=== PATIENT | male | born 1965 | race Caucasian/White ===

== ENCOUNTER → 2017-03-04 | Day surgery (SDC) | payer OTHER ==
[~2017-03-04] MED LIST: ALPRAZOLAM PO; FLEXERIL10 M1 PO; GENESUPP-5001 CAP PO; GRALISE600 MG PO; KETOPROFEN PO; LEXAPRO PO; LODINE500 M1 PO; LORTAB 10-3251 EACH PO; LORTAB 10/500 T1 TAB PO; LORTAB 7.5-5001 TAB PO; MAGNESIUM500 MG PO; NEURONTIN PO; ROBAXIN PO; ROBAXIN500 MG PO; SKELAXIN PO; VITAMIN D1000 UNI2 PO; VOLTAREN50 MG PO
--- NOTE | ~2017-03-04 | OR ---
Unit #: [id number] #: [id number] Patient: АНДРЕЙ LANTIGUA JR [id number] [address] [id number] [id number] MR#: [id number] NAME: АНДРЕЙ LANTIGUA JR ROOM: Date of Procedure: 03/04/2017 Admission Date: 03/04/2017 Surgeon: Mauricio Nicolas M.D. : 1965 Attending Physician: Mauricio Nicolas M.D. OPERATIVE REPORT PREOPERATIVE DIAGNOSES Neck pain, cervical radiculopathy, degenerative cervical disk disease. POSTOPERATIVE DIAGNOSIS Neck pain, cervical radiculopathy, degenerative cervical disk disease. PROCEDURE PERFORMED Cervical epidural steroid injection with intravenous sedation and fluoroscopic guidance for needle localization. INDICATIONS FOR PROCEDURE The patient is a 51-year-old male with return of neck and right upper extremity pain due to multilevel multifactorial degenerative cervical disk and spine disease. He is not a good surgical candidate based on pathology. He has done very well with epidural steroids. Last were done in 02/2016. He had a return of significant pain after about 3 to 4 months. Plan is to repeat a single injection at this point. He may do better with single injection on an as needed basis. DESCRIPTION OF PROCEDURE The patient was placed in a seated position. Standard monitors were applied. 2 mg of Versed were given for sedation and anxiolysis, which were adequate. Vital signs remained stable. Sterile prep and drape then of the cervical area was performed. The skin then at the C5 level was localized with 1% lidocaine. An 18-gauge 4C [place] needle was then advanced via hanging drop technique and fluoroscopic guidance in toward the epidural space. After confirming proper positioning with fluoroscopy and radiographic contrast, 80 mg of Depo-Medrol and 2 mL of 0.25% bupivacaine were deposited. The patient tolerated the procedure otherwise well and was discharged to recovery room in stable condition. Dictated by... Shannon BlakeP/lilyl TD: 03/05/2017 01:22 JOB #: [id number] Unit #: [id number] #: [id number] Patient: АНДРЕЙ LANTIGUA JR OPERATIVE REPORT Page 1 of 1 X Mauricio Nicolas MD X PROCEDURE OPERATIVE NOTE
== END | disposition home or self-care (01) ==
LOC: CCSC 08:31
DX: M50.11 Cervical disc disorder with radiculopathy, high cervical region (principal)
CPT/HCPCS: J1040; J2250